=== PATIENT | female | born 1980 | race Caucasian/White ===

== ENCOUNTER 2021-10-10 13:39 | Emergency (ER) | payer BC, SELFPAY ==
[2021-10-10 13:43] VITALS: BP 129/64; PULSE 96; RESP 16; O2SAT 100
--- NOTE | 2021-10-10 16:31 | ED.PREGNANCY ---
HPI - General Chief complaint: Vaginal Bleeding <ANDRÉS Farnsworth Last Filed: 10/10/21 18:43> Stated complaint: cramping and spotting during - 11 weeks <ANDRÉS Farnsworth Last Filed: 10/10/21 18:43> Time Seen by Provider: 10/10/21 15:45 <ANDRÉS Farnsworth Last Filed: 10/10/21 18:43> Source: patient <ANDRÉS Farnsworth Last Filed: 10/10/21 18:43> Mode of arrival: ambulatory <ANDRÉS Farnsworth Last Filed: 10/10/21 18:43> Limitations: no limitations <ANDRÉS Farnsworth Last Filed: 10/10/21 18:43> History of Present Illness HPI Narrative: Patient is a 41 y/o female who presents to the ED with c/o vaginal spotting. Patient reports she is currently around 11 weeks . She has had an ultrasound around 6 weeks done in outside hospital which showed a single intrauterine gestation with a small subchorionic hemorrhage. Patient reported having a large amount of bleeding at that time. Today, around 10:30 AM this morning, patient noticed slight vaginal spotting when she wiped after urinating. She denied any heavy bleeding. The vaginal spotting has since turned into a sort of brown discharge. She called the on-call [employer] and was referred to the ED for further evaluation and to a pelvic exam. Her [employer] is Dr. Perez. Patient also reports having slight LLQ abdominal cramping, radiating around to her L lower back. She has not tried anything for pain. She did have slight nausea earlier, but denies any currently. No vomiting, urinary symptoms, fever, chills. <ANDRÉS Farnsworth Last Filed: 10/10/21 18:43> Related Data Home medications: Home Medications Medication Instructions Recorded Confirmed citalopram 20 mg tablet 20 mg PO DAILY 09/22/21 docosahexaenoic acid 200 mg capsule mg PO 09/22/21 levocetirizine 5 mg tablet 5 mg PO DAILY 09/22/21 <ANDRÉS Farnsworth Last Filed: 10/10/21 18:43> Allergies/Adverse reactions: Allergies Allergy/AdvReac Type Severity Reaction Status Date / Time lactase Allergy Mild Hives Verified 10/10/21 15:50 Penicillins Allergy Mild Hives Verified 10/10/21 15:50 gluten Allergy Hives Verified 10/10/21 15:50 <Penny Bragg PA-C - Last Filed: 10/10/21 18:43> Review of Systems Review of Systems: CONSTITUTIONAL: Denies fever, chills. CARDIOVASCULAR: Denies chest pain. RESPIRATORY: Denies dyspnea. GASTROINTESTINAL: Reports LLQ abdominal pain, nausea. Denies vomiting, or diarrhea. GENITOURINARY: Denies dysuria or hematuria. MUSCULOSKELETAL: Reports L lower back pain. <Penny Bragg PA-C - Last Filed: 10/10/21 18:43> All systems reviewed & are unremarkable except as noted in HPI and below <Penny Bragg PA-C - Last Filed: 10/10/21 18:43> PMFSH Past Medical History Medical History: Medical History ADHD Anxiety Depression Miscarriage <Penny Bragg PA-C - Last Filed: 10/10/21 18:43> Surgical History Surgical History: Surgical History History of dilation and curettage Previous section <Penny Bragg PA-C - Last Filed: 10/10/21 18:43> Family History Family History: Family History (Updated 09/22/21 @ 11:24 by Shawna Hicks [facility]) Father Alcoholism Depression Sibling Asthma <Penny Bragg PA-C - Last Filed: 10/10/21 18:43> Social History Social History: Social History Smoking status: Former smoker Alcohol intake: never Substance use: never <Penny Bragg PA-C - Last Filed: 10/10/21 18:43> Exam Narrative: GENERAL: Well appearing, well-nourished, non-toxic, in no acute distress. HEAD: Normocephalic, atraumatic. NECK: Supple. No adenopathy, no masses. RESPIRATORY: Airway patent, respirations nonlabored. Clear to auscultation bilaterally, no rales, rhon
[2021-10-10 16:52] LABS: Basophils Absolute Auto 0.1 K/mm3 (0.0-0.1); Basophils Percent Auto 0.7 % (0.2-1.2); Eosinophils Absolute Auto 0.2 K/mm3 (0-0.3); Eosinophils Percent Auto 2.6 % (0-4.4); Hematocrit 37.3 % (37.0-47.0); Hemoglobin 13.1 g/dL (12.0-15.0); Immature Granulocyte Absolute 0.03 K/mm3 (0.00-0.031); Immature Granulocyte Percent A 0.4 % (0-0.5); Lymphocytes Absolute Auto 2.33 K/mm3 (0.9-3.2); Lymphocytes Percent Auto 27.3 % (18.3-44.2); Mean Corpuscular HGB Conc 35.1 g/dl (32-36); Mean Corpuscular Hemoglobin 31.4 pg (26-34); Mean Corpuscular Volume 89.4 fl (80-100); Mean Platelet Volume 9.7 fl (7.4-10.4); Monocytes Absolute Auto 0.4 K/mm3 (0.1-0.6); Monocytes Percent Auto 4.7 % (2.6-8.5); Neutrophils Absolute Auto 5.5 K/mm3 (1.3-6.7); Neutrophils Percent Auto 64.3 % (45.5-73.1); Platelet Count Result 307 k/mm3 (150-375); Red Blood Count 4.17 M/mm3 (4.2-5.4); White Blood Count 8.6 K/mm3 (4.5-10.0)
[2021-10-10 16:58] LABS: Add Urine Microscopic? YES; Appearance Urine Clear (Clear); Bacteria Urine 1+ /hpf; Bilirubin Urine Negative (Negative); Blood Urine 1+ (Negative); Color Urine Colorless (Yellow); Glucose Urine UA Negative (Negative); Ketones Urine Negative (Negative); Leukocyte Esterase Ur Negative LEU/UL (Negative); Mucus Urine Rare /lpf; Nitrate Urine Negative (Negative); Protein Urine Negative (Negative); RBC Urine 0-2 /hpf (0-2); Squamous Epithelial Cell Urine Rare /hpf (Few); Urobilinogen Urine Negative mg/dL (<2.0)
[2021-10-10 17:00] LABS: Specific Grav Ur 1.002 (1.001-1.035)
[2021-10-10 17:04] LABS: Alanine Aminotransferase 36 U/L (4-35); Albumin Level 4.5 g/dL (3.5-5.1); Alkaline Phosphatase 57 U/L (38-126); Anion Gap 8 mmol/L (8-16); Aspartate Amino Transferase 30 U/L (14-36); Bilirubin,Total < 0.1 mg/dL (0.2-1.3); Blood Urea Nitrogen 8 mg/dL (7-17); Calcium 9.3 mg/dL (8.4-10.2); Carbon Dioxide 24 mmol/L (22-30); Chloride 106 mmol/L (98-107); Estimated CRCL calculation 138 ml/min; Estimated Glomerular Filt Rate > 60; Glucose 93 mg/dL (65-110); Sodium 138 mmol/L (137-145)
[2021-10-10] MEDS: SODIUM CHLORIDE 0.9% IV 1,000 ML 999 ML IV CONT (17:08)
[2021-10-10 17:48] VITALS: BP 118/75; PULSE 52; RESP 16; O2SAT 100
== END 2021-10-10 18:36 | disposition home or self-care (01) ==
PROVIDERS: Physician Assistant; Emergency Provider Emergency Medicine; PCP Student in an Organized Health Care Education/Training Program
DX: O20.0 Threatened abortion (principal); O99.341 Other mental disorders complicating pregnancy, first trimester; F90.9 Attention-deficit hyperactivity disorder, unspecified type; F41.9 Anxiety disorder, unspecified; F32.A Depression, unspecified; Z87.891 Personal history of nicotine dependence; Z3A.11 11 weeks gestation of pregnancy
CPT/HCPCS: 36415; 80053; 81001; 84702; 85025; 96361; 96374; 99284; J0131; J7030

== ENCOUNTER 2021-10-11 14:46 | Outpatient (CLI) | payer BC, SELFPAY ==
--- NOTE | ~2021-10-11 | US_ITS ---
EXAMINATION: US OB <= 14 weeks fetus DATE: 10/11/2021 15:12 INDICATION: Hemorrhage during first trimester of TECHNIQUE: Real-time pelvic ultrasound utilizing both a transvaginal and transabdominal probe was pe rformed. The interpreting radiologist was not present for the study. COMPARISON: None. FINDINGS: The uterus measures 13.5 x 7.2 x 10.7 cm. There is an intrauterine gestational sac. A yolk sac and f etal pole are identified. The crown rump length measures 1.7 cm, which correlates with an estimated g estational age of 8 weeks and 1 days. There is no evident heart motion by M-mode Doppler. The b ilateral ovaries are not visualized. 6.8 x 6.5 x 6.5 cm hypoechoic fibroid at the left side of the ut erine fundus. There is no free fluid in the pelvis. IMPRESSION: 1. Single 1.7 cm fetus without discernible heart motion on color Doppler consistent with demise . 2. Gestational age by ultrasound of 8 weeks 1 day(s) +/- 5 day(s) with ultrasound estimated date of delivery ([facility]) of 05/22/2022. 3. 6.8 cm uterine fibroid. Reviewed, dictated and finalized at location B. IMPRESSION: 1. Single 1.7 cm fetus without discernible heart motion on color Doppler consis tent with demise. 2. Gestational age by ultrasound of 8 weeks 1 day(s) +/- 5 day(s) with ultraso und estimated date of delivery ([facility]) of 05/22/2022. 3. 6.8 cm uterine fibroid.
== END 2021-10-11 14:47 | disposition home or self-care (01) ==
LOC: ANHIMG 14:47
PROVIDERS: PCP Student in an Organized Health Care Education/Training Program; Visit Provider Obstetrics & Gynecology
DX: O20.9 Hemorrhage in early pregnancy, unspecified (principal); D25.9 Leiomyoma of uterus, unspecified; Z3A.01 Less than 8 weeks gestation of pregnancy
CPT/HCPCS: 76801

== ENCOUNTER 2021-11-16 16:16 | Outpatient (CLI) | payer BC, SELFPAY ==
[2021-11-16 17:26] LABS: Beta HCG Quantitative < 2.39 mIU/ML
== END 2021-11-16 16:17 | disposition home or self-care (01) ==
LOC: ANHLAB 16:26
PROVIDERS: Visit Provider Student in an Organized Health Care Education/Training Program
DX: O02.1 Missed abortion (principal); Z3A.00 Weeks of gestation of pregnancy not specified
CPT/HCPCS: 36415; 84702